=== PATIENT | male | born 1970 | race Caucasian/White ===

== ENCOUNTER 2018-08-13 10:27 | Emergency (ER) | payer OTHER, SELFPAY ==
[2018-08-13 10:29] VITALS: BP 136/87; PULSE 58; RESP 16; TEMP 36.7; O2SAT 98
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
[2018-08-13 11:25] VITALS: BP 136/87; PULSE 58; RESP 16; TEMP 36.7; O2SAT 98
== END 2018-08-13 11:25 | disposition home or self-care (01) ==
PROVIDERS: Emergency Provider Physician Assistant
DX: S50.311A Abrasion of right elbow, initial encounter (principal); M70.21 Olecranon bursitis, right elbow; V18.0XXA Pedal cycle driver injured in noncollision transport accident in nontraffic accident, initial encounter; Z53.29 Procedure and treatment not carried out because of patient's decision for other reasons
CPT/HCPCS: 90471; 99284